=== PATIENT | female | born 1950 | race Caucasian/White ===

== ENCOUNTER → 2017-05-25 13:32 | Outpatient (CLI) | payer MEDICARE, MEDICAID, SELFPAY ==
--- NOTE | 2017-05-25 13:35 | HPBI_ITS ---
MAMMOGRAPHY - UNILATERAL DIAGNOSTIC: RIGHT BREAST REASON FOR EXAM: Female, 67 years old. Right breast lump. PERTINENT HISTORY: Personal history of breast cancer. Prior right lumpectomy TECHNIQUE: Digital unilateral breast juliet (3D mammographic acquisition) in the CC and MLO projections. 2-D mediolateral oblique (MLO) and craniocaudad (CC) views of both breasts were obtained. CAD: Full Field Digital Mammography with Computer Added Detection was performed. COMPARISON: Comparison is made with prior study dated November 12, 2016. FINDINGS: Breast Composition: The breasts are extremely dense, which lowers the sensitivity of mammography. I suspect a 3.2 cm nodular density at the 12:00 region of the right breast. This corresponds to the palpable abnormality.Correlation with ultrasound is recommended. No other significant abnormalities are identified. HPBI/DIAG MAMM W/CAD, UNILAT IMPRESSION: I suspect a 3.2 cm nodular density at the 12:00 position of the breast. Correlation with ultrasound is recommended. ASSESSMENT CATEGORY: BIRADS Category 0: Incomplete. Need additional imaging evaluation. A letter regarding these results will be sent to the patient by the facility within 30 days. Approximately 10% of breast cancers are not detected by mammography. A normal mammogram should not delay biopsy of a clinically suspicious abnormality. Electronically Signed: Tolu Gentile MD at 14:26 EST Tel [phone], Service support ,
--- NOTE | 2017-05-25 13:35 | US_ITS ---
STUDY: ULTRASOUND BREAST - RIGHT REASON FOR EXAM: Female, 67 years old. Palpable lump in the right breast. TECHNIQUE: Axial and longitudinal images of the RIGHT breast were performed with a high resolution ultrasound transducer. COMPARISON: Comparison is made with prior ultrasound dated November 12, 2016 and prior mammogram done May 25, 2017. FINDINGS: RIGHT Breast: The palpable abnormality corresponds to a 3.6 cm x 3.1 cm x 1.0 cm hypoechoic solid density. Focal calcifications are seen within. This may represent a hematoma following biopsy. A repeat biopsy is recommended. US/Breast Limited Unilateral IMPRESSION: The palpable abnormality corresponds with 3.6 cm x 3.1 cm x 1.0 cm hypoechoic solid nodule with punctate calcifications at 11:00 position in the breast at 3 cm from the nipple. A biopsy is recommended for further evaluation. ASSESSMENT CATEGORY: BIRADS Category 2: Benign. A letter regarding these results will be sent to the patient by the facility within 30 days. Electronically Signed: Tolu Gentile MD at 15:26 EST Tel [phone], Service support ,
== END ==
PROVIDERS: Family Provider Family Medicine; PCP Family Medicine; Visit Provider Surgery
DX: C50.911 Malignant neoplasm of unspecified site of right female breast (principal)
CPT/HCPCS: 76641; 76642; 77061; 77065; G0279

== ENCOUNTER → 2017-06-12 10:30 | Outpatient (CLI) | payer MEDICARE, MEDICAID, SELFPAY ==
--- NOTE | 2017-06-12 10:35 | US_ITS ---
STUDY: ULTRASOUND BREAST - RIGHT REASON FOR EXAM: Female, 67 years old. Ultrasound guided right breast biopsy. TECHNIQUE: Axial and longitudinal images of the RIGHT breast were performed with a high resolution ultrasound transducer. COMPARISON: Comparison is made with prior examination dated May 25, 2017. FINDINGS: RIGHT Breast: The biopsy was not performed. No discrete mass lesion is seen. US/Breast Limited Unilateral IMPRESSION: No discrete mass lesion was seen. The scheduled biopsy was not performed. ASSESSMENT CATEGORY: BIRADS Category 2: Benign. A letter regarding these results will be sent to the patient by the facility within 30 days. Electronically Signed: Tolu Gentile MD at 12:25 EST Tel [phone], Service support ,
== END ==
PROVIDERS: Family Provider Family Medicine; PCP Family Medicine; Visit Provider Surgery
DX: C50.911 Malignant neoplasm of unspecified site of right female breast (principal)
CPT/HCPCS: 76642

== ENCOUNTER 2017-10-12 06:18 | Day surgery (SDC) | payer MEDICARE, SELFPAY ==
[2017-10-12] VITALS (8 sets, daily range): BP systolic 137–179; BP diastolic 75–116; PULSE 71–84; RESP 16–18; TEMP 36.6–37; O2SAT 97–100; BMI 15.4
[2017-10-12] MEDS: Bupivacaine Mpf 0.5% 30 ML VIAL (07:38)
--- NOTE | 2017-10-12 08:14 | RAD_ITS ---
STUDY: X-RAY CHEST REASON FOR EXAM: Female, 67 years old. Port placement. TECHNIQUE: Single AP portable view of the chest. COMPARISON: Comparison is made with prior study dated February 26, 2016. FINDINGS: A left-sided portacatheter is in place. The tip is at the junction of the superior vena cava and right atrium. Hyperinflation. The lungs are clear. There is no demonstrated pleural abnormality. Normal size heart. Normal mediastinum and jean claude. Normal visualized pulmonary arteries. Normal visualized aortic arch and descending thoracic aorta. Normal visualized thoracic spine. Normal visualized ribs, clavicles, and shoulders. There is no demonstrated abnormality of the visualized soft tissue structures of the upper abdomen. RAD/CXR for Line Placement IMPRESSION: Hyperinflation. The tip of the left ruddy catheter is at the junction of superior vena cava and right atrium. Electronically Signed: Tolu Gentile MD at 8:56 EDT Tel [phone], Service support ,
--- NOTE | 2017-10-12 08:15 | PCM.OPRPT ---
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 placement of LIJ port. 2. Use of US. 3. Use of fluoroscopy Type of Anesthesia:: MAC/Supplemental/Local Anesthesiologist: Gian Finney Special Medications: clindamycin 600mg IV x1 Estimated Blood Loss (mL): < 5 cc Fluids Replaced: 650 cc Description of Procedure: After informed consent was given, the patient was brought to the operating room and placed in the supine position. Appropriate time out protocol was followed. He was then given IV conscious sedation for anesthesia. The patient's left upper chest and neck were then prepped with a surgical skin preparation and sterile surgical drapes were placed. After proper landmarks were ascertained, the skin at the upper left chest area was then infiltrated with 1:1 mixture of 1% lidocaine with epinephrine and 0.5% maricaine. A needle trocar was then inserted into the left internal jugular vein with ultrasound guidance-multiple vessels were viewed with u/s and the left IJ was chosen-- and there was good aspiration of venous blood. A wire was then threaded into the needle trocar and this was visualized under fluoroscopy to ensure that the wire was in the superior vena cava. Once this was done, then the needle trocar was removed. A small skin boby was made with an 11 blade knife at the wire entrance site. The dilator with the introducer sheath attached was then placed over the wire into the left internal jugular vein via the Seldinger technique and this was visualized under fluoroscopy. The dilator and sheath were in proper position as visualized by fluoroscopy. A subcutaneous pocket was then created caudad to the catheter insertion site. A transverse skin incision was made after the skin and subcutaneous tissues were infiltrated with local anesthetic. Blunt dissection was then used to create a space large enough for placement of the subcutaneous port. The catheter was then tunneled into the subcutaneous pocket. The wire and dilator were then removed. The catheter was then threaded into the introducer sheath and was positioned with its tip at the junction of the superior vena cava and the right atrium as visualized under fluoroscopy. The excess catheter was transected. The catheter was then attached to the subcutaneous port using manufacturers guidelines. The catheter was flushed with a heparin saline mixture prior to placement. Hemostasis was carefully controlled with electrocautery. The port was sutured to the subcutaneous fascia using 3-0 PDS suture at two sites. The port was then placed in the subcutaneous pocket and the sutures were ligated. The incision were reapproximated with interrupted subdermal 3-0 vicryl sutures. The skin was reapproximated with 3-0 nylon suture in a interrupted fashion. Steristrips were used for reinforcement of the skin closure at IJ insertion site and a sterile opsite dressings were applied. The patient tolerated the procedure well. Implants Used: [employer] PowerPort isp M.R.I. 6Fr Lot [id number] Grafts/Implants Used: [employer] PowerPort isp M.R.I. 6Fr Lot [id number] - Complications none
--- NOTE | 2017-10-12 08:25 | PCM.DC.POR ---
Discharge Diet: No Restrictions May shower in (days): 5 - keep port clean and dry for 5 days Lifting Restrictions: no lifting > 15 with left arm for 1 week Call your doctor if your incision/area has: Continuous Slow Oozing, Sudden Increased Bleeding, Increased Pain/ Swelling, Increased Redness, Foul Smelling Discharge, Swelling at the incision site Call your doctor if you observe: Fever of 101 or Higher Change Dressing in (Days):: 3 - ok to remove neck opsite tomorrow Allergies/Adverse Reactions: Allergies Penicillins Allergy (Mild, Verified 10/09/17 15:38) Unknown A CHILD Medications to take at Discharge Levothyroxine [Synthroid] 125 mcg PO DAILY 05/27/14 Clonazepam [Klonopin] 2 mg PO TID 12/11/16 Tizanidine HCl [Zanaflex] 2 mg PO Q8H 12/11/16 Hydrocodone Bitart/Apap 5-325 [[place] 5MG-325MG] 1 tab PO Q4H PRN PRN #15 tab 12/15/16 Ergocalciferol [Vitamin D] 50,000 unit PO QMONTH 10/09/17 Primary Care Physician: Travon Skelton DO [Primary Care Provider] - Test Results: Test results from this visit will be discussed in further detail at your follow-up appointment, if applicable. Please Follow Up With: Onelia Moss MD - after 5pm/weekend call [phone] When: call office tomorrow for appt in 10 days for suture removal Proposed Discharge Date: 10/12/17
--- NOTE | 2017-10-12 08:28 | DCINST_ITS ---
Discharge Diet: No Restrictions May shower in (days): 5 - keep port clean and dry for 5 days Lifting Restrictions: no lifting > 15 with left arm for 1 week Call your doctor if your incision/area has: Continuous Slow Oozing, Sudden Increased Bleeding, Increased Pain/ Swelling, Increased Redness, Foul Smelling Discharge, Swelling at the incision site Call your doctor if you observe: Fever of 101 or Higher Change Dressing in (Days):: 3 - ok to remove neck opsite tomorrow Allergies/Adverse Reactions: Allergies Penicillins Allergy (Mild, Verified 10/09/17 15:38) Unknown A CHILD Medications to take at Discharge Levothyroxine [Synthroid] 125 mcg PO DAILY 05/27/14 Clonazepam [Klonopin] 2 mg PO TID 12/11/16 Tizanidine HCl [Zanaflex] 2 mg PO Q8H 12/11/16 Hydrocodone Bitart/Apap 5-325 [[place] 5MG-325MG] 1 tab PO Q4H PRN PRN #15 tab 02/20 Ergocalciferol [Vitamin D] 50,000 unit PO QMONTH 10/09/17 Primary Care Physician: Travon Skelton DO [Primary Care Provider] - Test Results: Test results from this visit will be discussed in further detail at your follow- up appointment, if applicable. Please Follow Up With: Onelia Moss MD - after 5pm/weekend call [phone] When: call office tomorrow for appt in 10 days for suture removal Proposed Discharge Date: 10/12/17
== END 2017-10-12 09:17 | disposition home or self-care (01) ==
LOC: SDC 06:19 → AC 06:20
PROVIDERS: Family Provider Family Medicine; PCP Family Medicine; Visit Provider Surgery
PROC: (CPT 36561; principal; 2017-10-12 07:15)
DX: Z45.2 Encounter for adjustment and management of vascular access device (principal); C50.911 Malignant neoplasm of unspecified site of right female breast; I10 Essential (primary) hypertension; J44.9 Chronic obstructive pulmonary disease, unspecified; K21.9 Gastro-esophageal reflux disease without esophagitis; Z87.891 Personal history of nicotine dependence
CPT/HCPCS: 36561; 71045; 77001; J7120; C1788

== ENCOUNTER → 2017-11-11 14:04 | Outpatient (CLI) | payer MEDICARE, SELFPAY ==
--- NOTE | 2017-11-11 14:08 | MRI_ITS ---
STUDY: BILATERAL BREAST MR WITHOUT AND WITH CONTRAST REASON FOR EXAM: Female, 67 years old. 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 Patient underwent radiation only clinically, lump has continued to increase in size. TECHNIQUE: Multi-sequence multi-echo imaging of both breasts was performed with a dedicated breast coil. T1-weighted and T2-weighted images were performed before the administration of contrast. T1-weighted images were also performed after the administration of 5 mL of Gadavist contrast intravenously without complications. COMPARISON: Ultrasound examinations of the right breast dated May 25, 2017 and June 12, 2017. The latest examination of June 12, 2017 showed no focal abnormality. FINDINGS: RIGHT BREAST: The breast tissue is markedly dense with minimal background enhancement. There are no abnormal enhancing masses or areas of non-mass enhancement in the right breast. LEFT BREAST: The breast tissue is markedly dense with minimal background enhancement. There are no abnormal enhancing masses or areas of non-mass enhancement in the left breast. There are no enlarged or abnormal lymph nodes. There is no abnormality in the visualized regions of the chest or liver. MRI/Breast w/o and/or W Cont Bilat IMPRESSION: No significant abnormality identified on the breast MRI examination before and after contrast. Negative imaging should not prevent further evaluation of any clinically suspicious finding. CATEGORY: BIRADS Category 2: Benign. A letter regarding these results will be sent to the patient by the facility within 30 days. Electronically Signed: Alfredo Vaughn MD at 12:56 EDT , Service support ,
== END ==
PROVIDERS: Family Provider Family Medicine; PCP Family Medicine; Visit Provider Family Medicine
DX: N64.4 Mastodynia (principal); C50.911 Malignant neoplasm of unspecified site of right female breast
CPT/HCPCS: 77059; A9585; C8908

== ENCOUNTER 2017-12-02 13:10 | Day surgery (SDC) | payer MEDICARE, SELFPAY ==
[2017-12-02] VITALS (7 sets, daily range): BP systolic 135–173; BP diastolic 68–93; PULSE 72–93; RESP 16; TEMP 36.7–37; O2SAT 96–100; BMI 15.0
--- NOTE | 2017-12-02 14:50 | PCM.DC.POR ---
Discharge Diet: No Restrictions May shower in (days): 1 Lifting Restrictions: no lifting < 15 lb w left arm x 1 week Call your doctor if your incision/area has: Continuous Slow Oozing, Sudden Increased Bleeding, Increased Redness, Foul Smelling Discharge, Swelling at the incision site Call your doctor if you observe: Fever of 101 or Higher Remove Dressing in (days):: 2 Allergies/Adverse Reactions: Allergies Penicillins Allergy (Mild, Verified 11/24/17 11:49) Unknown A CHILD Medications to take at Discharge Levothyroxine [Synthroid] 125 mcg PO DAILY 05/27/14 Clonazepam [Klonopin] 2 mg PO TID 12/11/16 Tizanidine HCl [Zanaflex] 2 mg PO Q8H 12/11/16 Hydrocodone Bitart/Apap 5-325 [[place] 5MG-325MG] 1 tab PO Q4H PRN PRN #15 tab 12/15/16 Ergocalciferol [Vitamin D] 50,000 unit PO QMONTH 10/09/17 Primary Care Physician: Travon Skelton DO [Primary Care Provider] - Test Results: Test results from this visit will be discussed in further detail at your follow-up appointment, if applicable. Please Follow Up With: Onelia Moss MD When: call office for f/u in 2 weeks Proposed Discharge Date: 12/02/17
[2017-12-02] MEDS: Bupivacaine Mpf 0.5% 30 ML VIAL (15:35)
--- NOTE | 2017-12-02 15:49 | PCM.OPRPT ---
Report of Operation Date of Procedure: 12/02/17 Pre-Operative Diagnosis: Removal of port LIJ Post-Operative Diagnosis: same Surgery/Procedure Performed:: Removal of left IJ port Type of Anesthesia:: MAC Anesthesiologist: Fredi Chen Special Medications: Clindamyacin 600 mg IV ?1 Specimen's removed: portacath- not sent Estimated Blood Loss (mL): <10 cc Fluids Replaced: 100 cc Description of Procedure: Patient was placed supine on the table timeout was completed verifying correct patient, procedure, site, positioning, special, prior to beginning procedure. MAC anesthesia was induced. The left chest was prepped and draped in usual sterile fashion. Local anesthesia of 1% lidocaine with epi was used. The previous left port site was re-incised with a 15 blade scalpel in Metzenbaum scissors were used to sharply incise the capsule surrounding the port. The catheter was removed while pressure was being held on the left IJ site externally. Next the port was removed from the pocket. The incision was closed with 3-0 Vicryl subdermal sutures with Steri's and OpSite. Patient tolerated procedure well and was taken to the PACU in stable condition. - Complications None
== END 2017-12-02 16:46 | disposition home or self-care (01) ==
LOC: SDC 13:12 → AC 13:19
PROVIDERS: Family Provider Family Medicine; PCP Family Medicine; Visit Provider Surgery
PROC: (CPT 36590; principal; 2017-12-02 14:55)
DX: Z45.2 Encounter for adjustment and management of vascular access device (principal); K21.9 Gastro-esophageal reflux disease without esophagitis; Z79.899 Other long term (current) drug therapy; I10 Essential (primary) hypertension; Z87.891 Personal history of nicotine dependence; C50.911 Malignant neoplasm of unspecified site of right female breast; M79.2 Neuralgia and neuritis, unspecified
CPT/HCPCS: 00400; 36590; J7120

== ENCOUNTER → 2018-01-26 09:28 | Outpatient (CLI) | payer MEDICARE, SELFPAY ==
--- NOTE | 2018-01-26 09:31 | BI_ITS ---
MAMMOGRAPHY - BILATERAL DIAGNOSTIC REASON FOR EXAM: Female, 67 years old. Increasing size of the right breast mass with increased sensitivity. Recent radiation treatment of the right breast. PERTINENT HISTORY: Personal history of breast cancer. Prior right excisional breast biopsy. TECHNIQUE: Digital bilateral breast juliet (3D mammographic acquisition) in the CC and MLO projections. 2-D mediolateral oblique (MLO) and craniocaudad (CC) views of both breasts were obtained. CAD: Full Field Digital Mammography with Computer Added Detection was performed. COMPARISON: Comparison is made with prior examination dated May 25, 2017 and November 12, 2016. FINDINGS: Breast Composition: The breasts are extremely dense, which lowers the sensitivity of mammography. There are no dominant masses or suspicious calcifications. Stable vascular calcification. No other significant abnormalities are identified. BI/DIAG MAMM W/CAD, BILAT IMPRESSION: Stable bilateral diagnostic mammogram. With the patient's history of a palpable abnormality in the right breast, correlation with ultrasound is recommended. ASSESSMENT CATEGORY: BIRADS Category 0: Incomplete. Need additional imaging evaluation. A letter regarding these results will be sent to the patient by the facility within 30 days. Approximately 10% of breast cancers are not detected by mammography. A normal mammogram should not delay biopsy of a clinically suspicious abnormality. Electronically Signed: Tolu Gentile MD at 15:27 EDT Tel [phone], Service support ,
--- NOTE | 2018-01-26 09:32 | US_ITS ---
STUDY: ULTRASOUND BREAST - RIGHT REASON FOR EXAM: Female, 67 years old. Palpable lump in the right breast. TECHNIQUE: Axial and longitudinal images of the RIGHT breast were performed with a high resolution ultrasound transducer. COMPARISON: Comparison is made with prior sonogram dated June 12, 2017 and prior mammogram done earlier today. FINDINGS: RIGHT Breast: Once again, there is a 3 cm x 3.3 cm x 1.0 cm heterogeneous soft tissue density at the 11:00 position breast at 3 cm from the nipple. This is similar to prior examination. Prior MRI scan did not demonstrate any abnormality. This may represent edematous tissue. US/Breast Limited Unilateral IMPRESSION: Stable examination. Clinical correlation is recommended. ASSESSMENT CATEGORY: BIRADS Category 2: Benign. A letter regarding these results will be sent to the patient by the facility within 30 days. Electronically Signed: Tolu Gentile MD at 12:49 EDT Tel [phone], Service support ,
== END ==
PROVIDERS: Family Provider Family Medicine; PCP Family Medicine
DX: C50.911 Malignant neoplasm of unspecified site of right female breast (principal); N64.4 Mastodynia; N63.0 Unspecified lump in unspecified breast
CPT/HCPCS: 76642; 77062; 77066; G0279

== ENCOUNTER → 2018-05-11 11:14 | Outpatient (CLI) | payer MEDICARE, SELFPAY ==
[2018-05-11 13:17] LABS: Thyroid Stim Hormone (TSH) 0.04 uIU/mL (0.358-3.74)
[2018-05-11 16:30] LABS: Free T3 2.1 pg/mL (2.18-3.98); T4 Free Direct 1.29 ng/dL (0.76-1.46)
== END ==
PROVIDERS: Family Provider Family Medicine; PCP Family Medicine; Visit Provider Family Medicine
DX: E03.9 Hypothyroidism, unspecified (principal); Z51.81 Encounter for therapeutic drug level monitoring; R79.89 Other specified abnormal findings of blood chemistry
CPT/HCPCS: 36415; 84439; 84443; 84481

== ENCOUNTER 2018-08-09 07:30 | Day surgery (SDC) | payer MEDICARE, SELFPAY ==
[2018-06-30 14:38] VITALS: BMI 15.3
--- NOTE | 2018-07-12 18:12 | HP.PCM_ITS ---
History and Physical Date of Admission: 07/13/18 HISTORY OF PRESENT ILLNESS 68 year old woman presents with a painful indurated mass right breast superior to the nipple. She was diagnosed with invasive ductal carcinoma right breast on 12/15/16. Estrogen receptors are negative. Progesterone receptors are negative. [id number] is negative for overexpression. She underwent a right sentinel lymph node biopsy on 02/18/17. The lymph nodes were negative. She then underwent radiation therapy. She was evaluated for chemotherapy which she declined. After the radiation therapy, she developed worsening induration and pain in the right breast in the biopsy area. It was felt it was due to a Methylene Blue reaction at the time of the sentinel lymph node biopsy. She underwent a mammogram on 01/26/18 which showed the breasts are extremely dense. There are no dominant masses or suspicious calcifications. An ultrasound of the right breast was also done on 01/26/18 which showed a 3 x 3.3 x 1 cm heterogenous soft tissue density at 11:00 position 3 cm from the nipple. She went to a surgeon in [place] and underwent a right breast biopsy on 04/01/18. Pathology was negative according to the patient. Some of the mass persisted and increased in size. Because of the persistent pain in the area, I was asked to evaluate this patient for surgical options for treatment of her painful radiation mass scar contour deformity right breast. Because I anticipate disproportion of the reconstructed breast with asymmetry after further excision of this painful mass, she also presents to discuss her breast reconstruction options. PAST MEDICAL HISTORY Breast lump in female (Acute) Cervical vertigo (Acute) History of right breast cancer (Acute) Neuralgia (Acute) Osteoarthritis (Acute) SKIN CANCER EXCISION (Acute) Thyroid disease (Acute) Vision problems (Acute) Vitamin D deficiency (Acute) COPD (chronic obstructive pulmonary disease) (Chronic) Hypertension (Chronic) PAST SURGICAL HISTORY lymph node excision lumpectomy, right breast ALLERGIES Penicillins meloxicam MEDICATIONS Levothyroxine [Synthroid] Clonazepam [Klonopin] Tizanidine HCl [Zanaflex] Hydrocodone Bitart/Apap 5-325 [[place] 5MG-325MG] Ergocalciferol [Vitamin D] FAMILY HISTORY Father - CVA (cerebral vascular accident) Mother - Cancer SOCIAL HISTORY Smoking Status: Former smoker alcohol intake: never substance use type: does not use REVIEW OF SYSTEMS General - Denies fever and weight loss. Has fatigue. Eyes - Has cataracts. Denies glaucoma. ENT - Denies nasal congestion and sore throat. Endocrine - Denies excessive thirst and urination. Has thyroid disease. Has heat and cold intolerance. Skin - Denies suspicious lesions and skin cancer. Musculoskeletal - Has joint pain, joint stiffness, and arthritis. Denies weakness of muscles and joints and back pain. Neuro - Denies headaches. Has light headedness. Cardiovascular - Denies chest pain and shortness of breath with exertion. Has fatigue and light headedness. Psych - Denies anxiety and depression. Has claustrophobia. Respiratory - Has cough. Denies shortness of breath. Gastrointestinal - Denies nausea, vomiting, diarrhea, and constipation. Hematologic - Denies abnormal bruising and bleeding. Genitourinary - Denies hematuria and urinary frequency. PHYSICAL EXAMINATION General - Alert and Oriented. Bra size is 34 A. HEENT - PERRL. EOMI. Throat is clear. Neck - Supple and nontender. No cervical adenopathy. Breasts - Palpable mass right breast superior to the nipple in the area of the previous biopsy. Measures 4 cm. Tender to palpation. Adherent to the underlying muscle. No ulceration. No skin retraction. No skin dimpling. Pseudoptosis is present where the nipple is located at the inframammary fold and the breast tissue is below that. There is a lack of superior pole fullness. No axillary adenopathy. Lungs - Clear to auscultation. Heart - Regular rate and rhythm. Abdomen - Soft and nondistended. No abdominal scars noted. Minimal redundant skin and subcutaneous tissue between the umbilicus and the pubic area. Extremities - FROM. No axillary adenopathy. Radial pulses are palpable. Neuro - CN II-XII grossly intact. Psych - Normal mood and affect. ASSESSMENT 1. Right breast cancer. 2. 4 cm painful radiation mass scar contour deformity right breast. 3. Disproportion reconstructed breast. 4. Late effect radiation right breast. 5. Soft tissue radionecrosis right breast. 6. Former smoker. PLAN Ultrasound and Mammogram and MRI reviewed. Recommend excision of this painful radiation mass scar contour deformity right breast. Will send the mass to Pathology for analysis to rule out carcinoma. My concern is that if this mass remains even though it has been biopsied in March and it was benign according to the patient, a breast cancer can always form behind the mass. Every time the patient feels this mass in the future, she will think it is from the radiation and not worry about it and then potentially miss a breast cancer in the future. So this mass needs to be removed to not compromise future breast cancer surveillance. I anticipate a breast defect after the excision and closure depending on how much radiation fibrosis needs to be removed. Will send the mass to Pathology for analysis to rule out carcinoma. With her history of radiation therapy, she would benefit from HBO treatments after the surgery. This will help to soften up any more residual firm radiation damage and to help with oxygenation and help with vascularity. Depending on the degree of the breast deformity, discussed various breast reconstruction options with the patient. These range from placement of expanders and implants to using autogenous tissue such as the TRAM flap or the latissimus dorsi flap to a combination of the two. The patient has expressed interest in cohesive gel implants if there is a breast deformity. For the right breast because of the radiation therapy, we would need to bring in nonradiated tissue for the reconstruction. She does not have much redundant skin in the lower anterior abdominal wall so either choice (TRAM or latissimus dorsi flap) would provide nonradiated tissue for the skin envelope. Can place a small cohesive gel implant underneath. For the opposite breast can place a cohesive gel implant for symmetry. Doubt a saline tissue senior informatica etl developer would be needed but can always be done if needed. A mastopexy may also be needed as well. Patient will think about her reconstruction options after this painful mass is excised. Postop will further discuss HBO treatments which would be beneficial especially if further breast reconstruction is done. Patient is aware that after the excision, there may be some nipple deformity on the right because of the proximity of the mass to the nipple. She voices understanding and if present, she would more likely want to pursue breast reconstruction. Surgery will be done under general anesthesia on an outpatient basis unless extensive excision is necessary in which case a surgical observation overnight stay may be necessary. She will have drains in for several days and be maintained on antibiotics until the drains are removed. Patient was informed of the risks and complications of the procedure including alternatives to surgery. These were discussed with the patient personally. Patient voices understanding and wishes to proceed. Some of the risks and complications were included in a form from the [employer].
[2018-07-13 11:51] VITALS: BP 173/101; PULSE 105; RESP 16; TEMP 37.1; O2SAT 100; BMI 15.6
[2018-08-09 08:31] VITALS: BP 154/75; PULSE 97; RESP 16; TEMP 37.6; O2SAT 99; BMI 14.8
--- NOTE | 2018-08-09 09:10 | MASS_PTH ---
PATIENT: JESS AGUILAR LOC: [facility] – [place] U#:[id number] AGE/SX: 68/F ROOM: RE08/09/[address]: Dr. Federico Ellis MD : 1950 BED: DIS: 08/09/2018 SPEC #: [id number] RECD: 08/09/18 11:31 STATUS: WALI MAGO #: [id number] RODRIGUEZ: 08/09/18 09:[address]: Federcio Ellis DEPT: SURGICAL PATHOLOGY RECD BY: Thierry Phillips ENTERED: 08/09/18 12:45 SP TYPE: Mass OTHR DR: Dr. Travon Skelton DO Tissues: Right breast, NOS Procedures: Surgery Specimen Level IV HEADER OPERATION: Surgical preparation breast with excision PRE-OP DIAGNOSIS: Right breast CA, 4 cm painful radiation mass, scar contour deformity right breast TISSUE SUBMITTED: Radiation mass scar contour deformity right breast MICROSCOPIC DIAGNOSIS Right breast, radiation mass scar contour deformity: Fragments of benign breast tissue with dense fibrosis and chronic inflammation. Focal microcalcifications. Negative for atypia or malignancy in the sections examined. SHAYNE:shannon 08/11/18 MICROSCOPIC DESCRIPTION Slides are reviewed. GROSS DESCRIPTION Received in fixative is one container labeled with the patient's name and designated radiation mass scar contour deformity right breast. The specimen consists of a minute portion of skin with underlying soft tissue measuring 5 x 2 cm and excised to a depth of 7.1 cm. The skin segment measures 2 cm in length x 0.5 cm in diameter and contains a delicate longitudinal scar. The underlying soft tissue is hayden-yellow to hayden-white, soft to moderately firm and rubbery. No discrete lesion is identified. The specimen is inked black, serially sectioned to reveal cut surfaces which are hayden and slightly rubbery. Fall Intern sections are submitted in six cassettes. / CE:shannon 08/09/18 More sections are submitted in one cassette, #7. / SJ:shannon 08/10/18 TC:5 CPT: 76668
--- NOTE | 2018-08-09 10:43 | PCM.OPRPT ---
Report of Operation Date of Procedure: 08/09/18 Pre-Operative Diagnosis: 1. Right breast cancer. 2. 4 cm painful radiation mass scar contour deformity right breast. 3. Disproportion reconstructed breast. 4. Late effect radiation right breast. 5. Soft tissue radionecrosis right breast. 6. Former smoker. Post-Operative Diagnosis: 1. Right breast cancer. 2. 6 cm painful radiation mass scar contour deformity right breast. 3. Disproportion reconstructed breast. 4. Late effect radiation right breast. 5. Soft tissue radionecrosis right breast. 6. Former smoker. Surgery/Procedure Performed:: Surgical preparation right breast with excision painful radiation mass scar contour deformity and partial mastectomy with complex secondary wound closure. Description of Surgical Findings:: 68 year old woman presents with a painful indurated mass right breast superior to the nipple. She was diagnosed with invasive ductal carcinoma right breast on 12/15/16. Estrogen receptors are negative. Progesterone receptors are negative. [id number] is negative for overexpression. She underwent a right sentinel lymph node biopsy on 02/18/17. The lymph nodes were negative. She then underwent radiation therapy. She was evaluated for chemotherapy which she declined. After the radiation therapy, she developed worsening induration and pain in the right breast in the biopsy area. It was felt it was due to a Methylene Blue reaction at the time of the sentinel lymph node biopsy. She underwent a mammogram on 01/26/18 which showed the breasts are extremely dense. There are no dominant masses or suspicious calcifications. An ultrasound of the right breast was also done on 01/26/18 which showed a 3 x 3.3 x 1 cm heterogenous soft tissue density at 11:00 position 3 cm from the nipple. She went to a surgeon in [place] and underwent a right breast biopsy on 04/01/18. Pathology was negative according to the patient. Some of the mass persisted and increased in size. Because of the persistent pain in the area, I was asked to evaluate this patient for surgical options for treatment of her painful radiation mass scar contour deformity right breast. Because I anticipate disproportion of the reconstructed breast with asymmetry after further excision of this painful mass, she also presents to discuss her breast reconstruction options. Patient was informed of the risks and complications of the procedure including alternatives to surgery. These were discussed with the patient personally. Patient voices understanding and wishes to proceed. Some of the risks and complications were included in a form from the [employer]. I used Madonna absorbable hemostat. Reference Number - [id number]. Lot Number - [id number]. Expiration - May 03, 2023. production assembly supervisor: Mayelin Fierro. Type of Anesthesia:: General Specimen's removed: Painful radiation mass scar contour deformity right breast to Pathology. Drains: Sean. Estimated Blood Loss (mL): 25 ml. Description of Procedure: Patient was taken to OR in supine position and was placed under general anesthesia. The right breast was prepped and draped in the usual fashion. SCD's were placed for DVT prophylaxis. Perioperative antibiotics were given intravenously. Using xylocaine with epinephrine, the previous scar right breast was infiltrated. After waiting 5 minutes for the anesthetic to take effect, I proceeded with an elliptical excision of the scar down into the subcutaneous tissue until the firm mass was encountered. It was adherent to the underlying pectoralis major muscle. It was multilobulated. It was more extensive on the inside than could be palpated. When excised, the firm multilobulated mass measured 6 cm. The size of the mass that was removed amounted to a partial mastectomy as about half the breast tissue was removed today. The firm mass was sent to Pathology for analysis to rule out carcinoma. I had discussed with the patient preoperatively that if the remaining breast tissue becomes firm with radiation fibrosis, the next step would be a completion mastectomy including the nipple. Patient voiced understanding. The breast wound was irrigated with saline. Hemostasis was obtained with electrocautery. Due to the large size of the cavity, the wound was sprayed with Madonna absorbable hemostat to minimize seroma formation. A size 15 Sean drain was placed through a separate stab incision laterally and was secured to the skin with 3-0 Nylon suture. The wound was then closed in a multiple layered fashion with 3-0 Monocryl interrupted sutures for the deep dermis and subcutaneous tissue. The skin was approximated with 4-0 V lock unidirectional barbed running subcuticular suture followed by Histoacryl skin tissue adhesive. It was dressed with 4x4 gauze, and ABD pad compression dressing followed by a compression PEREZ wrap. Patient tolerated the procedure well and was sent to PACU in satisfactory condition. Patient will be sent home on antibiotics and pain medication. Patient will followup in a week for a wound check and for discussion of the pathology report. She will keep her head elevated during the initial postop period and be on a lifting restriction. I anticipate the drain removal in 10-14 days. Grafts/Implants Used: None. - Complications None. - Admit VTE Documentation VTE Present on Admission: No VTE Mechan Device Prophylaxis: SCD's VTE Pharm Prophylaxis ordered?: No Code Visit Surgery Charges CPT - 48264 ICD-10 - C50.911, N64.4, N63.10, N65.1, T66.xxxS, L59.8, Z87.891 36546 C50.911, N64.4, N63.10, N65.1, T66.xxxS, L59.8, Z87.891
--- NOTE | 2018-08-09 10:56 | PCM.DC ---
You will use the following diet at home:: No restrictions Discharge Activity: May not drive while taking narcotic pain medications., May Not Shower - until the drain is removed in the office., - - no heavy lifting. keep head elevated. May shower in (days): 14 - when the drain is removed. May resume sexual activity in: No Restrictions Weight Bearing Status: Weight bearing as tolerated Lifting Restrictions: 20 lbs. Keep extremity elevated above heart level: - - elevate head. Call your doctor if your incision/area has: Continuous Slow Oozing, Sudden Increased Bleeding, Increased Pain/ Swelling, Increased Redness, Foul Smelling Discharge, Swelling at the incision site Call your doctor if you observe: Fever of 101 or Higher, Coldness, Increased Pain, Shortness of breath, Chest pain, Calf discomfort, Uncontrolled pain Suture Line Care: - - dry dressings daily followed by martha wrap. Change Dressing in (Days):: 2 - dry dressings daily followed by martha wrap. Cleanse incision/area with: - - may get incision wet in the shower when the drain is removed. Drain: Suction - isidro drain to bulb suction. empty and record output daily. Allergies/Adverse Reactions: Allergies Penicillins Allergy (Mild, Verified 07/05/18 14:22) Unknown A CHILD meloxicam Adverse Reaction (Severe, Verified 07/05/18 14:22) IRREGULAR HEART RATE Medications to take at Discharge Levothyroxine [Synthroid] 100 mcg PO DAILY 05/27/14 Tizanidine HCl [Zanaflex] 2 mg PO Q8H 12/11/16 Ergocalciferol [Vitamin D] 50,000 unit PO QMONTH 10/09/17 Clonazepam 0.05 - 1 mg PO TID PRN 07/05/18 Amlodipine [Norvasc] 5 mg PO DAILY 08/04/18 Clindamycin HCl [Cleocin] 300 mg PO TID #42 cap 08/09/18 Lactobacillus Acidophilus/Fos [Acidophilus Probiotic Tablet] 1 ea PO BID #30 tab 08/09/18 Oxycodone HCl/Acetaminophen [Percocet 5/325] 1 - 2 tab PO 4X/DAY PRN PRN 7 Days #50 tab 08/09/18 The following prescriptions were given: Oxycodone HCl/Acetaminophen [Percocet 5/325] 1 - 2 tab PO 4X/DAY PRN PRN 7 Days #50 tab PRN Reason: Pain Lactobacillus Acidophilus/Fos [Acidophilus Probiotic Tablet] 1 ea PO BID #30 tab Clindamycin HCl [Cleocin] 300 mg PO TID #42 cap Primary Care Physician: Travon Skelton DO [Primary Care Provider] - Test Results: Test results from this visit will be discussed in further detail at your follow-up appointment, if applicable. Please Follow Up With: Federico Ellis MD When: one week. call [phone] for appt. Proposed Discharge Date: 08/09/18
--- NOTE | 2018-08-09 10:59 | DCINST_ITS ---
You will use the following diet at home:: No restrictions Discharge Activity: May not drive while taking narcotic pain medications., May Not Shower - until the drain is removed in the office., - - no heavy lifting. keep head elevated. May shower in (days): 14 - when the drain is removed. May resume sexual activity in: No Restrictions Weight Bearing Status: Weight bearing as tolerated Lifting Restrictions: 20 lbs. Keep extremity elevated above heart level: - - elevate head. Call your doctor if your incision/area has: Continuous Slow Oozing, Sudden Increased Bleeding, Increased Pain/ Swelling, Increased Redness, Foul Smelling Discharge, Swelling at the incision site Call your doctor if you observe: Fever of 101 or Higher, Coldness, Increased Pain, Shortness of breath, Chest pain, Calf discomfort, Uncontrolled pain Suture Line Care: - - dry dressings daily followed by martha wrap. Change Dressing in (Days):: 2 - dry dressings daily followed by martha wrap. Cleanse incision/area with: - - may get incision wet in the shower when the drain is removed. Drain: Suction - isidro drain to bulb suction. empty and record output daily. Allergies/Adverse Reactions: Allergies Penicillins Allergy (Mild, Verified 07/05/18 14:22) Unknown A CHILD meloxicam Adverse Reaction (Severe, Verified 07/05/18 14:22) IRREGULAR HEART RATE Medications to take at Discharge Levothyroxine [Synthroid] 100 mcg PO DAILY 05/27/14 Tizanidine HCl [Zanaflex] 2 mg PO Q8H 12/11/16 Ergocalciferol [Vitamin D] 50,000 unit PO QMONTH 10/09/17 Clonazepam 0.05 - 1 mg PO TID PRN 07/05/18 Amlodipine [Norvasc] 5 mg PO DAILY 08/04/18 Clindamycin HCl [Cleocin] 300 mg PO TID #42 cap 08/09/18 Lactobacillus Acidophilus/Fos [Acidophilus Probiotic Tablet] 1 ea PO BID #30 tab 08/09/18 Oxycodone HCl/Acetaminophen [Percocet 5/325] 1 - 2 tab PO 4X/DAY PRN PRN 7 Days #50 tab 08/09/18 The following prescriptions were given: Oxycodone HCl/Acetaminophen [Percocet 5/325] 1 - 2 tab PO 4X/DAY PRN PRN 7 Days #50 tab PRN Reason: Pain Lactobacillus Acidophilus/Fos [Acidophilus Probiotic Tablet] 1 ea PO BID #30 tab Clindamycin HCl [Cleocin] 300 mg PO TID #42 cap Primary Care Physician: Travon Skelton DO [Primary Care Provider] - Test Results: Test results from this visit will be discussed in further detail at your follow- up appointment, if applicable. Please Follow Up With: Federico Ellis MD When: one week. call [phone] for appt. Proposed Discharge Date: 08/09/18
[2018-08-09 11:06] VITALS: BP 154/75; BP 162/110; PULSE 90; RESP 18; TEMP 36.5; O2SAT 96
[2018-08-09 11:10] VITALS: BP 146/90; BP 154/75; PULSE 76; RESP 18; O2SAT 85
[2018-08-09 11:15] VITALS: BP 154/75; BP 154/79; PULSE 79; RESP 18; O2SAT 95
[2018-08-09 11:30] VITALS: BP 154/75; BP 154/81; PULSE 81; RESP 18; TEMP 36.5; O2SAT 95
[2018-08-09] MEDS: Acetaminophen 325 MG Tablet PO (12:18)
[2018-08-09] MEDS: oxyCODONE 5 MG Tablet PO (12:18)
[2018-08-09 12:33] VITALS: BP 145/71; BP 154/75; PULSE 84; RESP 16; TEMP 37.4; O2SAT 96
== END 2018-08-09 12:37 | disposition home or self-care (01) ==
LOC: SDC 07:30 → AC 07:31
PROVIDERS: Family Provider Family Medicine; PCP Family Medicine; Referring Provider Surgery; Visit Provider Surgery
PROC: (CPT 13160; principal; 2018-08-09 08:55)
DX: N60.31 Fibrosclerosis of right breast (principal); N65.1 Disproportion of reconstructed breast; L90.5 Scar conditions and fibrosis of skin; L59.8 Other specified disorders of the skin and subcutaneous tissue related to radiation; Y84.2 Radiological procedure and radiotherapy as the cause of abnormal reaction of the patient, or of later complication, without mention of misadventure at the time of the procedure; M19.90 Unspecified osteoarthritis, unspecified site; E07.9 Disorder of thyroid, unspecified; J44.9 Chronic obstructive pulmonary disease, unspecified; I10 Essential (primary) hypertension; E55.9 Vitamin D deficiency, unspecified; Z79.899 Other long term (current) drug therapy; Z87.891 Personal history of nicotine dependence; Z85.3 Personal history of malignant neoplasm of breast
CPT/HCPCS: 13160; 15002; 19301; 88305; J7120

== ENCOUNTER → 2018-11-22 09:12 | Outpatient (CLI) | payer MEDICARE, SELFPAY ==
[2018-09-01 10:21] VITALS: BMI 14.8
== END ==
PROVIDERS: Family Provider Family Medicine; PCP Family Medicine; Referring Provider Surgery; Visit Provider Surgery
DX: Z00.00 Encounter for general adult medical examination without abnormal findings (principal)

== ENCOUNTER 2019-01-13 05:54 | Day surgery (SDC) | payer MEDICARE, SELFPAY ==
[2018-12-08 14:49] VITALS: BMI 14.8
[2019-01-13] VITALS (7 sets, daily range): BP systolic 137–156; BP diastolic 72–91; PULSE 73–99; RESP 16–18; TEMP 36.1–37.2; O2SAT 93–100; BMI 16.4
--- NOTE | 2019-01-13 00:11 | PCM.HP.BLA ---
History and Physical Date of Admission: 01/13/19 HISTORY OF PRESENT ILLNESS 68 year old woman initially presented with a painful indurated mass right breast superior to the nipple. She was diagnosed with invasive ductal carcinoma right breast on 12/15/16. Estrogen receptors are negative. Progesterone receptors are negative. [id number] is negative for overexpression. She underwent a right sentinel lymph node biopsy on 02/18/17. The lymph nodes were negative. She then underwent radiation therapy. She was evaluated for chemotherapy which she declined. After the radiation therapy, she developed worsening induration and pain in the right breast in the biopsy area. It was felt it was due to a Methylene Blue reaction at the time of the sentinel lymph node biopsy. She underwent a mammogram on 01/26/18 which showed the breasts are extremely dense. There are no dominant masses or suspicious calcifications. An ultrasound of the right breast was also done on 01/26/18 which showed a 3 x 3.3 x 1 cm heterogenous soft tissue density at 11:00 position 3 cm from the nipple. Because of persistent pain the patient went back to the operating room on 08/09/18 where she underwent surgical preparation right breast with excision painful radiation mass scar contour deformity and partial mastectomy with complex secondary wound closure. Pathology was negative for cancer. Patient started developing cancerphobia and there was initial discussion about proceeding with a completion mastectomy on the right and a prophylactic mastectomy on the left. A saline tissue medical staff manager would be placed on the left and initially on the right, bringing in nonradiated tissue such as a TRAM flap would be done. However she has thought about it recently and just wants to proceed with the completion mastectomy on the right at this time and hold off on reconstruction until next year. She also wants to hold off on prophylactic mastectomy on the left as well. PAST MEDICAL HISTORY Breast lump in female Cervical vertigo right breast cancer Neuralgia Osteoarthritis Thyroid disease Vision problems Vitamin D deficiency COPD (chronic obstructive pulmonary disease) Hypertension PAST SURGICAL HISTORY lymph node excision S/P lumpectomy, left breast SKIN CANCER EXCISION ALLERGIES Penicillins meloxicam MEDICATIONS Levothyroxine [Synthroid] Ergocalciferol [Vitamin D] Clonazepam Amlodipine Lactobacillus Acidophilus/Fos [Acidophilus Probiotic Tablet] hydrocodone tizanidine FAMILY HISTORY Father - CVA (cerebral vascular accident) Mother - Cancer SOCIAL HISTORY Smoking Status: Former smoker alcohol intake: never substance use type: does not use REVIEW OF SYSTEMS General - Denies fever and weight loss. Has fatigue. Eyes - Has cataracts. Denies glaucoma. ENT - Denies nasal congestion and sore throat. Endocrine - Denies excessive thirst and urination. Has thyroid disease. Has heat and cold intolerance. Skin - Denies suspicious lesions and skin cancer. Musculoskeletal - Has joint pain, joint stiffness, and arthritis. Denies weakness of muscles and joints and back pain. Neuro - Denies headaches. Has light headedness. Cardiovascular - Denies chest pain and shortness of breath with exertion. Has fatigue and light headedness. Psych - Denies anxiety and depression. Has claustrophobia. Respiratory - Has cough. Denies shortness of breath. Gastrointestinal - Denies nausea, vomiting, diarrhea, and constipation. Hematologic - Denies abnormal bruising and bleeding. Genitourinary - Denies hematuria and urinary frequency. PHYSICAL EXAMINATION General - Alert and Oriented. Bra size is 34 A. HEENT - PERRL. EOMI. Throat is clear. Neck - Supple and nontender. No cervical adenopathy. Breasts - Has residual radiation induration right breast. Mild tenderness. Right breast is smaller than the left breast after the lumpectomies. Adherent to the underlying muscle. No skin retraction. No skin dimpling. Pseudoptosis is present where the nipple is located at the inframammary fold and the breast tissue is below that. There is a lack of superior pole fullness. No axillary adenopathy. On the left breast, no breast masses palpable. No axillary adenopathy. Lungs - Clear to auscultation. Heart - Regular rate and rhythm. Abdomen - Soft and nondistended. No abdominal scars noted. Minimal redundant skin and subcutaneous tissue between the umbilicus and the pubic area. Extremities - FROM. No axillary adenopathy. Radial pulses are palpable. Neuro - CN II-XII grossly intact. Psych - Normal mood and affect. ASSESSMENT 1. Right breast cancer. 2. Persistent painful radiation induration contour deformity right breast. 3. Disproportion reconstructed breast. 4. Late effect radiation right breast. 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 7. Smoker. PLAN Patient has thought about her breast reconstruction and wants to hold off on her reconstruction at this time. Because of her cancer phobia, she just wants to proceed with the completion mastectomy on the right at this time. Will send the tissue to Pathology for analysis to rule out carcinoma. She states she is still smoking just one or two cigarettes a day. Therefore will not proceed with the mastopexy type T incision which can have wound healing problems. Will proceed with the traditional horizontal mastectomy type incision which includes the nipple. With her history of radiation therapy, she would benefit from HBO treatments after the surgery. This will help to soften up any more residual firm radiation damage and to help with oxygenation and help with vascularity. When she decides to pursue her breast reconstruction, we will bring in nonradiated tissue on the right with a TRAM flap. With her history of smoking, will proceed with a delay procedure first then do the TRAM in 3 weeks. She will also let me know if she decides to pursue prophylactic mastectomy on the left at some point. If so then reconstruction would be with placement of a tissue medical staff manager followed by removal and replacement cohesive gel implant. This may also necessitate a small cohesive gel implant underneath the TRAM flap for symmetry purposes. Patient was informed of the risks and complications of the procedure including alternatives to surgery. These were discussed with the patient personally. Patient voices understanding and wishes to proceed. Some of the risks and complications were included in a form from the [employer]. Encouraged patient to stop smoking as it may have deleterious effects on wound healing. Surgery will be done under general anesthesia with a surgical observation overnight stay at the hospital. She will have drains in for several days and be maintained on antibiotics until the drains are removed. Her anniversary is at the end of December so will proceed with the surgery in early January.
--- NOTE | 2019-01-13 06:07 | EKG12_ITS ---
Test Reason : PRE OP Blood Pressure : / mmHG Vent. Rate : 086 BPM Atrial Rate : 086 BPM P-R Int : 152 ms QRS Dur : 082 ms QT Int : 368 ms P-R-T Axes : 085 053 069 degrees QTc Int : 440 ms Normal sinus rhythm Right atrial enlargement Borderline ECG When compared with ECG of 30-NOV-2013 20:09, No significant change was found Confirmed by NESTOR WATTERS, ABILIO ([id number]), desk editor JAYY LIZ ([id number]) on 01/19/2019 10:32:14 AM Referred By: Federico Ellis Confirmed By:LARS BAEZ MD
--- NOTE | 2019-01-13 06:08 | RAD_ITS ---
STUDY: X-RAY CHEST REASON FOR EXAM: Female, 68 years old. Preoperative chest, history COPD, smoker, breast cancer TECHNIQUE: Portable AP chest COMPARISON: 10/12/2017 and 02/26/2016. Chest radiographs FINDINGS: There is a new 1.8 cm density within the left upper lobe overlying the left anterior third rib. The central venous catheter has been removed. There are bilateral COPD changes. There is scattered bilateral pulmonary scarring. There is no demonstrated pleural abnormality. Normal size heart. Normal mediastinum and jean claude. Normal visualized pulmonary arteries. Normal visualized aortic arch and descending thoracic aorta. Normal visualized thoracic spine. Normal visualized ribs, clavicles, and shoulders. There are surgical clips within the right axilla likely prior meniscectomy. There is no demonstrated abnormality of the visualized soft tissue structures of the upper abdomen. RAD/Chest 1 View (Portable) IMPRESSION: New 1.8 cm left upper lobe density suspicious for a pulmonary nodule, less likely scar or infiltrate. CT chest would be recommended to further evaluate to exclude malignancy. COPD changes Scattered bilateral pulmonary scarring Surgical clips within the right axilla likely from prior mastectomy The results were called to and discussed with the patient's nurse Diane Cifuentes immediately after my review at approximately 7:48 AM 01/13/2019 N.B. : The above information has been verbally conveyed by Nitish Banuelos to Diane Cifuentes [id number], on 01/13/2019 07:57:24 (ET). Electronically Signed: Nitish Banuelos, at 7:59 EDT Tel , Service support ,
[2019-01-13] MEDS: Magnesium Sulfate 4gm/100mL 4 GM/100 ML IV.SOLN. IV (06:35)
[2019-01-13] MEDS: Gabapentin 600 MG Tablet PO (06:36)
[2019-01-13] MEDS: Acetaminophen 500 MG Tablet 1000 MG PO (06:36)
[2019-01-13] MEDS: Scopolamine 1mg/72hr Patch 1 PATCH TRANSDERM. (06:37)
[2019-01-13 06:40] LABS: Bedside Glucose 96 mg/dL (70-110)
[2019-01-13] MEDS: Lactated Ringers 1,000 ML 40 ML IV (06:40)
[2019-01-13 06:45] LABS: Hematocrit 34.5 % (37-47); Hemoglobin 11.1 g/dL (12.0-15.0); Mean Corp Hgb Conc 32.2 g/dL (32-36); Mean Corpuscular Hgb 29.9 pg (27.0-32.0); Platelet Count 284 K/mm3 (150-450); RBC Distribution Width CV 13.4 % (11.6-14.6); Red Blood Count 3.71 M/mm3 (4.2-5.4); White Blood Count 7.6 K/mm3 (4.4-11.0)
[2019-01-13 06:52] LABS: Prothrombin Time (Protime)PT. 13.2 SECONDS (11.7-14.9)
[2019-01-13 06:53] LABS: Partial Thromboplast Time 39.1 Seconds (24.1-36.2)
[2019-01-13 07:11] LABS: AST(SGOT) 14 U/L (15-37); Alanine Aminotransfer ALT/SGPT 18 U/L (13-56); Albumin, Serum 3.2 g/dL (3.2-5.0); Alkaline Phosphatase 91 U/L (45-117); Bilirubin, Direct 0.08 mg/dL (0.00-0.30); Globulin 3.6 g/dL (2.2-4.2); Protein, Total 6.8 g/dL (6.4-8.2); Thyroid Stim Hormone (TSH) 0.07 uIU/mL (0.358-3.74)
--- NOTE | 2019-01-13 07:30 | BREAST_PTH ---
PATIENT: JESS AGUILAR LOC: [facility] U#:[id number] AGE/SX: 68/F ROOM: RE01/13/[address]: Dr. Federico Ellis MD : 1950 BED: DIS: 01/13/2019 SPEC #: [id number] RECD: 01/13/19 11:12 STATUS: WALI RENeena #: [id number] RODRIGUEZ: 01/13/19 07:[address]: Federico Ellis DEPT: SURGICAL PATHOLOGY RECD BY: Thierry Phillips ENTERED: 01/13/19 13:08 SP TYPE: BREAST OTHR DR: Dr. Travon Skelton DO Tissues: Right breast, NOS Procedures: Surgery Specimen Level V HEADER OPERATION: Mastectomy, completion PRE-OP DIAGNOSIS: Right breast cancer; persistent painful radiation induration contour deformity right breast; disproportion reconstructed breast; late effect radiation right breast; soft tissue radionecrosis right breast TISSUE SUBMITTED: Right breast MICROSCOPIC DIAGNOSIS Right breast, mastectomy: Skin, nipple and areola - no pathologic change. Breast parenchyma with fat necrosis, fibrosis, suture granulomas, minimal chronic inflammation. No evidence of malignancy. AM:shannon 01/14/19 COMMENT Reference is made to the patient's right breast lumpectomy ([id number]) in which invasive ductal carcinoma was identified. Case has been reviewed in consultation with Dr. Spaulding who concurs with the above diagnosis. IDC:SJ MICROSCOPIC DESCRIPTION Slides are reviewed. GROSS DESCRIPTION Received in fixative is one container labeled with the patient's name and designated right breast. The specimen consists of a piece of breast tissue with overlying skin of areola. The breast tissue measures 5 x 5 x 2 cm. The skin ellipse measures 7 x 2.6 cm. The nipple measures 1.2 cm in greatest dimension and the nipple areolar complex measures 2.7 cm in greatest dimension. No skin lesion is identified. Also present in the container are detached pieces of fibroadipose tissue and mixed with one small piece of skin measuring in aggregate 5.5 x 5 x 1 cm. Sections do not reveal any mass lesion. L[employer] Recausticizing Operator sections are submitted in six cassettes as follows: 1 - nipple, entirely submitted, 2-5 - largest piece of tissue consisting of breast tissue, 6 - detached pieces of tissue and skin. / SHAYNE:shannon 01/13/19 TC:5 CPT: 51217
--- NOTE | 2019-01-13 09:05 | OP.PCM_ITS ---
Report of Operation Date of Procedure: 01/13/19 Pre-Operative Diagnosis: 1. Right breast cancer. 2. Persistent painful radiation induration contour deformity right breast. 3. Disproportion reconstructed breast. 4. Late effect radiation right breast. 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 7. Smoker. Post-Operative Diagnosis: Same. Surgery/Procedure Performed:: Completion mastectomy right breast. Description of Surgical Findings:: 68 year old woman initially presented with a painful indurated mass right breast superior to the nipple. She was diagnosed with invasive ductal carcinoma right breast on 12/15/16. Estrogen receptors are negative. Progesterone receptors are negative. [id number] is negative for overexpression. She underwent a right sentinel lymph node biopsy on 02/18/17. The lymph nodes were negative. She then underwent radiation therapy. She was evaluated for chemotherapy which she declined. After the radiation therapy, she developed worsening induration and pain in the right breast in the biopsy area. It was felt it was due to a Methylene Blue reaction at the time of the sentinel lymph node biopsy. She underwent a mammogram on 01/26/18 which showed the breasts are extremely dense. There are no dominant masses or suspicious calcifications. An ultrasound of the right breast was also done on 01/26/18 which showed a 3 x 3.3 x 1 cm heterogenous soft tissue density at 11:00 position 3 cm from the nipple. Because of persistent pain the patient went back to the operating room on 08/09/18 where she underwent surgical preparation right breast with excision painful radiation mass scar contour deformity and partial mastectomy with complex secondary wound closure. Pathology was negative for cancer. Patient started developing cancerphobia and there was initial discussion about proceeding with a completion mastectomy on the right and a prophylactic mastectomy on the left. A saline tissue underground production foreperson would be placed on the left and initially on the right, bringing in nonradiated tissue such as a TRAM flap would be done. However she has thought about it recently and just wants to proceed with the completion mastectomy on the right at this time and hold off on reconstruction until next year. She also wants to hold off on prophylactic mastectomy on the left as well. Patient was informed of the risks and complications of the procedure including alternatives to surgery. These were discussed with the patient personally. Patient voices understanding and wishes to proceed. Some of the risks and complications were included in a form from the [employer] [employer]. Encouraged patient to stop smoking as it may have deleterious effects on wound healing. I used Madonna absorbable hemostat. Reference Number - [id number]. Lot Number - [id number]. Expiration - July 02, 2023. mercerizer machine operator: Jordon Frank. Type of Anesthesia:: General Specimen's removed: Right breast tissue to Pathology. Drains: Sean. Estimated Blood Loss (mL): 20 ml. Description of Procedure: Patient was taken to OR in supine position and was placed under general anesthesia. The right breast was prepped and draped in the usual fashion. SCD's were placed for DVT prophylaxis. Perioperative antibiotics were given intravenously. I marked out a horizontal ellipse around the nipple and also including the previous scar just superior to the nipple. Using xylocaine with epinephrine, these markings were infiltrated. After waiting 5 minutes for the anesthetic to take effect, I made a horizontal elliptical incision into the subcutaneous tissue. I placed the breast skin on stretch and proceeded with the completion mastectomy. I dissected the breast tissue off the breast skin flaps at the level of Mabel's fascia. Dissection extended to the pectoralis major muscle and extended superiorly to the clavicle, medially to the sternum, laterally to the anterior axillary line, and inferiorly to the inframammary fold. The remaining breast tissue was then excised off the pectoralis major muscle. Some of the soft tissue was firm indicative of residual radiation scar contour deformity. The right breast tissue was sent to Pathology for analysis to rule out carcinoma. Hemostasis was obtained with electrocautery. I irrigated the breast pocket with Irrisept Chlorhexidine 0.05% Solution and, after waiting a minute, this was followed by saline irrigation. A size 15 Sean drain was placed through a separate stab incision laterally and secured to the skin with 3-0 Nylon suture. I sprayed Madonna absorbable hemostat into the right breast pocket to minimize seroma postoperatively. The mastectomy incision was then closed in a layered fashion with 3-0 Monocryl interrupted sutures for the deep dermis and subcutaneous tissue. The skin was approximated with 4-0 V Lock unidirectional barbed running subcuticular suture and was followed by Histoacryl skin tissue adhesive. The breast skin flaps at the end of the procedure showed no evidence of vascular compromise. There was no evidence of hematoma. Gauze dressing was then applied followed by a compression martha wrap. Patient tolerated the procedure well and was sent to PACU in satisfactory condition. Patient will be sent home on antibiotics and pain medication. Patient will followup in a week for a wound check and for discussion of the pathology report. Will remove the drain in two weeks. With her history of radiation therapy, a CXR was obtained before surgery. It showed a nodule in the left lung that is suspicious for carcinoma because of her history of smoking and history of breast cancer. I discussed these findings with the patient's . I will discuss these findings with the patient at her postop visit. My office contacted her PCP, Dr. Skelton, who will continue the evaluation of this left lung nodule with the patient. Grafts/Implants Used: None. - Complications None. - Admit VTE Documentation VTE Mechan Device Prophylaxis: SCD's VTE Pharm Prophylaxis ordered?: Yes Code Visit Surgery Charges CPT - 19951 ICD-10 - C50.911, F40.298, Z90.11, N65.1, N64.4, N65.0, T66.xxxS, L59.8, F17.200
--- NOTE | 2019-01-13 09:50 | PCM.DC ---
You will use the following diet at home:: No restrictions Discharge Activity: May not drive while taking narcotic pain medications., May Not Shower - until the drain is removed in the office., May Take a Tub Bath - from the umbilicus down., - - keep head elevated. no heavy lifting. continue martha wrap chest wall compression. May shower in (days): 14 - after the drain is removed. May resume sexual activity in: 10-14 days Weight Bearing Status: Weight bearing as tolerated Lifting Restrictions: 20 lbs. Keep extremity elevated above heart level: - - elevate head. Call your doctor if your incision/area has: Continuous Slow Oozing, Sudden Increased Bleeding, Increased Pain/ Swelling, Increased Redness, Foul Smelling Discharge, Swelling at the incision site Call your doctor if you observe: Fever of 101 or Higher, Coldness, Increased Pain, Shortness of breath, Chest pain, Calf discomfort, Uncontrolled pain Suture Line Care: - - dry dressings daily after operative dressing is removed in two days. Change Dressing in (Days):: 2 - dry dressings daily after the operative dressing is removed in a couple of days. Cleanse incision/area with: - - may get incision wet in the shower after the drain is removed in the office. Drain: Suction - isidro drain to bulb suction. empty and record output daily. Allergies/Adverse Reactions: Allergies Penicillins Allergy (Mild, Verified 01/13/19 06:21) Unknown A CHILD meloxicam Adverse Reaction (Severe, Verified 01/13/19 06:21) IRREGULAR HEART RATE Medications to take at Discharge Levothyroxine [Synthroid] 100 mcg PO DAILY 05/27/14 Ergocalciferol [Vitamin D] 50,000 unit PO QMONTH 10/09/17 Amlodipine [Norvasc] 5 mg PO DAILY 08/04/18 tizanidine 2 mg tablet 4 mg PO TID tab 12/08/18 Clindamycin HCl [Cleocin HCl] 300 mg PO TID #42 cap 01/13/19 Clonazepam 2 mg PO TID #30 tab 01/13/19 Hydrocodone/Acetaminophen [Townsend 5-325 Tablet] 1 tab PO Q4H PRN 7 Days #40 tab 01/13/19 Lactobacillus Acidophilus/Fos [Acidophilus Probiotic Tablet] 1 ea PO BID #30 tab 01/13/19 The following prescriptions were given: Lactobacillus Acidophilus/Fos [Acidophilus Probiotic Tablet] 1 ea PO BID #30 tab Prescription Printed Clindamycin HCl [Cleocin HCl] 300 mg PO TID #42 cap Prescription Printed Clonazepam 2 mg PO TID #30 tab Prescription Printed Hydrocodone/Acetaminophen [Townsend 5-325 Tablet] 1 tab PO Q4H PRN 7 Days #40 tab PRN Reason: Pain Score 1-10/10 Prescription Printed Orders to be completed after discharge: 12 Lead EKG [[facility]] Time Frame: 01/10/19, Facility: [facility], Location: Cardiovascular Services Chest PA and Lateral [RAD] Time Frame: 01/10/19, Facility: [facility], Location: Radiology, [facility] CBC-Complete Blood Cnt No Diff Time Frame: 01/10/19, Facility: [facility], Location: Laboratory Liver Profile Time Frame: 01/10/19, Facility: [facility], Location: Laboratory Partial Thromboplast Time Time Frame: 01/10/19, Facility: [facility], Location: Laboratory Prothrombin Time w/INR Time Frame: 01/10/19, Facility: [facility], Location: Laboratory Thyroid Stim Hormone (TSH) Time Frame: 01/10/19, Facility: [facility], Location: Laboratory Primary Care Physician: Travon Skelton DO [Primary Care Provider] - Test Results: Test results from this visit will be discussed in further detail at your follow-up appointment, if applicable. Please Follow Up With: Federico Ellis MD When: one week. call [phone] for appt. Proposed Discharge Date: 01/13/19
== END 2019-01-13 11:09 | disposition home or self-care (01) ==
LOC: SDC 05:56 → AC 05:58
PROVIDERS: Anesthesiology; Family Provider Family Medicine; PCP Family Medicine; Referring Provider Surgery; Visit Provider Surgery
PROC: (CPT 19303; principal; 2019-01-13 07:15)
DX: C50.911 Malignant neoplasm of unspecified site of right female breast (principal); N65.0 Deformity of reconstructed breast; N64.51 Induration of breast; N65.1 Disproportion of reconstructed breast; L59.8 Other specified disorders of the skin and subcutaneous tissue related to radiation; N64.1 Fat necrosis of breast; F40.298 Other specified phobia; Z90.11 Acquired absence of right breast and nipple; N60.31 Fibrosclerosis of right breast; M19.90 Unspecified osteoarthritis, unspecified site; E06.9 Thyroiditis, unspecified; J44.9 Chronic obstructive pulmonary disease, unspecified; I10 Essential (primary) hypertension; Z86.2 Personal history of diseases of the blood and blood-forming organs and certain disorders involving the immune mechanism; Z78.0 Asymptomatic menopausal state; Z85.828 Personal history of other malignant neoplasm of skin; Z79.899 Other long term (current) drug therapy; F17.200 Nicotine dependence, unspecified, uncomplicated
CPT/HCPCS: 19303; 36415; 71045; 80076; 82962; 84443; 85027; 85610; 85730; 88307; 93005; J7120; J2405

== ENCOUNTER → 2019-02-22 07:45 | Outpatient (CLI) | payer MEDICARE, SELFPAY ==
[2019-01-19 10:47] VITALS: BMI 16.4
[2019-02-02 10:53] VITALS: BMI 16.4
--- NOTE | 2019-02-22 07:50 | CT_ITS ---
STUDY: CT CHEST WITH CONTRAST REASON FOR EXAM: Female, 68 years old. History of lung nodule. RADIATION DOSAGE (If Supplied By Facility): CTDIvol = ( 7.23 ) mGy, DLP = ( 173.10 ) mGycm TECHNIQUE: Transaxial imaging was performed following intravenous administration of IV Isovue 370 100. Multiplanar coronal and sagittal images were reformatted. Individualized dose optimization techniques were used for this CT. COMPARISON: Comparison is made with prior chest radiograph dated January 13, 2019. FINDINGS: There is a 1.5 cm x 1.8 cm x 2.4 cm predominantly cystic nodule with irregular wall worse in the anterior superior aspect. This may represent either an infected bulla or possible cystic neoplasm. Correlation with the PET scan is recommended. Hyperinflation and mild degree of emphysematous changes. Findings suggestive of a mild degree of the scarring at the lung bases. Normal heart and pericardium. Normal mediastinum. Normal hilar regions. Normal enhanced pulmonary arteries. Normal aorta arch and descending thoracic aorta. There is demineralization of the thoracic spine. There is no demonstrated abnormality of the visualized upper abdomen. CT/Chest WITH Contrast IMPRESSION: 1.5 cm x 1.87 x 2.4 cm predominantly cystic nodule with irregular mantilla in the left upper lobe as described. Correlation with PET scan is recommended. Electronically Signed: Tolu Gentile, at 16:00 EST , Service support ,
[2019-02-22 08:10] LABS: CREATININE FINGERSTICK 1.3 mg/dL (0.55-1.02)
== END ==
PROVIDERS: Family Provider Family Medicine; PCP Family Medicine; Referring Provider Family Medicine; Visit Provider Family Medicine
DX: R91.1 Solitary pulmonary nodule (principal)
CPT/HCPCS: 71260

== ENCOUNTER → 2019-05-23 07:25 | Outpatient (CLI) | payer MEDICARE, MEDICAID, SELFPAY ==
[2019-02-02 10:53] VITALS: BMI 16.4
--- NOTE | 2019-05-23 08:30 | PET_ITS ---
EXAMINATION: FDG PET-CT INDICATIONS: A 69-year-old female with reported history of pulmonary nodularity. COMPARISON EXAMINATION: CT of the chest report dated 02/21/2019 INDEX LESION SIZE SUV INTERPRETATION Left upper-mid anterior lung-left upper lobe 19.8-mm (frame 202) 7.2 Fulfills quantitative criteria for viable neoplasm, histopathologic analysis recommended Carinal level mediastinum, paratracheal 7.3-mm (frame 204) 4.2 Fulfills quantitative criteria for viable neoplasm NON-INDEX LESION SIZE SUV INTERPRETATION Left lower lung, linear 2.2 Quantitative criteria for viable neoplasm are not fulfilled TECHNIQUE: Following the intravenous administration of 18.5 mCi of F-18 deoxyglucose via the left antecubital fossa, multiplanar image acquisitions of the neck, chest, abdomen and pelvis to level of mid thigh, obtained at one hour post radiopharmaceutical administration contemporaneously interpreted with the current CT of the neck, chest, abdomen and pelvis, to level of mid thigh, dated 05/23/[address] of the chest report dated 02/21/2019 reveals: BLOOD GLUCOSE LEVEL:?? 93 mg/dl?HEIGHT:?63 inches?WEIGHT: 84 lbs. FINDINGS: 1. Focal increased glucose concentration is observed in the left upper-mid anterior lung-left upper lobe generating a calculated maximal standard uptake value of 7.2. The maximal axial diameter of the corresponding cavitated parenchymal density on review of CT of the chest dated 05/23/2019 is 19.8-mm (transverse). 2. Facilitated tracer concentration is observed in the carinal level mediastinum to the left of the midline, paratracheal in location, generating a calculated maximal standard uptake value of 4.2. The maximal axial diameter of the corresponding soft tissue density on review of CT of the chest dated 05/23/2019 is 7.3-mm (transverse). 3. Normal physiologic distribution of the radiopharmaceutical is apparent in the hepatic (1.8) and splenic parenchyma, both renal units, bladder and visualized intestinal tract. The visualized portion of the cerebral cortex demonstrate symmetric and preserved glucose metabolism. Diffuse radiopharmaceutical concentration is noted in all four quadrants of the abdomen and pelvis. A linear increase in glucose concentration is observed in the left lower lateral lung generating a calculated maximal standard uptake value of 2.2. Quantitative criteria for viable neoplasm are not fulfilled. Pertinent CT findings are as follows: CHEST: Emphysematous change is noted in the bilateral upper lung zones. Additional subcentimeter parenchymal changes defined in the bilateral hemithorax reveal no evidence of facilitated FDG uptake. There is atherosclerotic calcification defined in the thoracic aorta without evidence of dilatation-aneurysm formation. Coronary arterial calcification is observed. ABDOMEN AND PELVIS: There is atherosclerotic calcification defined in the abdominal aorta without evidence of dilatation-aneurysm formation. Pelvic arterial calcification is observed. Bilateral inguinal subcentimeter soft tissue densities are ametabolic. The urinary bladder appears distended. SKELETAL: Degenerative changes are noted in the cervical, thoracic and lumbar spine. There is diffuse demineralization identified throughout the axial skeletal structures. PET/PET/CT Tumor Base -Thigh Init IMPRESSION: 1. Increased glucose concentration observed in the left upper anterior lung zone-left upper lobe fulfills quantitative criteria for viable neoplasm. Histopathologic analysis is recommended. (Castro et al, Annals of Internal Medicine, 138:724, 2003). 2. The carinal level mediastinal increase in glucose concentration noted to the left of the midline, paratracheal in location, fulfills quantitative criteria for metastatic involvement. (VanSteenkiste et al, Journal of Clinical Oncology 16:2142, 1998). 3. Linear enhanced FDG uptake noted in the left lower lateral lung is consistent with a low likelihood of viable neoplastic transformation. Electronic Signature Guille Bustos D.O. Electronically Signed: Guille Bustos DO at 0:06 EST Tel , Service support ,
== END ==
PROVIDERS: Family Provider Family Medicine; PCP Family Medicine; Referring Provider Family Medicine; Visit Provider Family Medicine
DX: R91.1 Solitary pulmonary nodule (principal)
CPT/HCPCS: 78815; A9552

== ENCOUNTER → 2019-05-25 10:20 | Outpatient (CLI) | payer MEDICARE, MEDICAID, SELFPAY ==
[2019-02-02 10:53] VITALS: BMI 16.4
[2019-05-25 12:31] LABS: Absolute Lymphocyte Count 1.76 X10^3/uL (0.83-4.51); Basophil# 0.04 X10^3/uL; Basophil% 0.4 % (0-1); Eosinophil# 0.19 X10^3/uL; Eosinophils% 1.7 % (0-5); Hematocrit 41.8 % (37-47); Hemoglobin 13.2 g/dL (12.0-15.0); Lymphocyte # 1.76 X10^3/ul (4.0); Lymphocyte % 15.7 % (19-41); Mean Corp Hgb Conc 31.6 g/dL (32-36); Mean Corpuscular Hgb 28.4 pg (27.0-32.0); Mean Corpuscular Volume 90.1 fL (81-99); Mean Platelet Vol. 9.8 fl (6.2-12.0); Monocyte# 1.03 X10^3/uL; Monocyte% 9.2 % (0-10); NRBC Flagged by Analyzer 0 % (0-5); Neutrophil # 7.96 X10^3/uL (2.7-7.7); Neutrophil % 71.2 % (47-70); Platelet Count 478 K/mm3 (150-450); RBC Distribution Width CV 14.2 % (11.6-14.6); RBC Distribution Width SD 46.1 fl (35.1-43.9); Red Blood Count 4.64 M/mm3 (4.2-5.4); White Blood Count 11.2 K/mm3 (4.4-11.0)
[2019-05-25 13:05] LABS: AST(SGOT) 17 U/L (15-37); Alanine Aminotransfer ALT/SGPT 18 U/L (13-56); Albumin, Serum 3.9 g/dL (3.2-5.0); Alkaline Phosphatase 83 U/L (45-117); Anion Gap 6 (5-15); BUN 17 mg/dL (7-18); Calcium,Total 9.9 mg/dL (8.5-10.1); Chloride 99 mmol/L (98-107); Creatinine, Serum 1.13 mg/dL (0.55-1.02); EST Glomerular Filtration Rate 51 mL/min (>60); Est Glom Filt Rate - Afr Amer 62 mL/min (>60); Glucose 102 mg/dL (74-106); Potassium 3.8 mmol/L (3.5-5.1); Protein, Total 7.9 g/dL (6.4-8.2); Sodium Level 136 mmol/L (136-145)
[2019-05-26 15:41] LABS: Carcinoembryonic Antigen 4.7 ng/mL (0.0-4.7)
== END ==
PROVIDERS: PCP Family Medicine; Visit Provider Family Medicine
DX: C34.92 Malignant neoplasm of unspecified part of left bronchus or lung (principal); Z51.81 Encounter for therapeutic drug level monitoring
CPT/HCPCS: 36415; 80053; 82378; 85025

== ENCOUNTER → 2019-06-14 09:25 | Outpatient (CLI) | payer MEDICARE, MEDICAID, SELFPAY ==
[2019-06-14 06:04] VITALS: BMI 15.7
[2019-06-14 10:22] LABS: Prothrombin Time (Protime)PT. 13.2 SECONDS (11.7-14.9)
[2019-06-14 10:23] LABS: Partial Thromboplast Time 32.9 Seconds (24.1-36.2)
== END ==
PROVIDERS: PCP Family Medicine; Referring Provider Internal Medicine Critical Care Medicine; Visit Provider Internal Medicine Critical Care Medicine
DX: J98.4 Other disorders of lung (principal); R06.00 Dyspnea, unspecified; Z98.890 Other specified postprocedural states
CPT/HCPCS: 36415; 85610; 85730

== ENCOUNTER → 2019-09-01 08:54 | Outpatient (CLI) | payer MEDICARE, MEDICAID, SELFPAY ==
[2019-06-14 06:04] VITALS: BMI 15.7
[2019-09-01 13:09] LABS: ALB/GLOB Ratio 0.8 RATIO (0.9-2.4); AST(SGOT) 50 U/L (15-37); Alanine Aminotransfer ALT/SGPT 45 U/L (13-56); Albumin, Serum 3.5 g/dL (3.2-5.0); Alkaline Phosphatase 93 U/L (45-117); Anion Gap 6 (5-15); BUN 19 mg/dL (7-18); BUN/Creat Ratio 16.7 RATIO (10-20); Calcium,Total 9.7 mg/dL (8.5-10.1); Chloride 98 mmol/L (98-107); Creatinine, Serum 1.14 mg/dL (0.55-1.02); EST Glomerular Filtration Rate 51 mL/min (>60); Est Glom Filt Rate - Afr Amer 61 mL/min (>60); Globulin 4.2 g/dL (2.2-4.2); Glucose 98 mg/dL (74-106); Potassium 4.6 mmol/L (3.5-5.1); Protein, Total 7.7 g/dL (6.4-8.2); Sodium Level 133 mmol/L (136-145)
== END ==
PROVIDERS: PCP Family Medicine; Visit Provider Family Medicine
DX: M62.838 Other muscle spasm (principal); Z51.81 Encounter for therapeutic drug level monitoring
CPT/HCPCS: 36415; 80053

== ENCOUNTER → 2019-09-07 07:54 | Outpatient (CLI) | payer MEDICARE, MEDICAID, SELFPAY ==
[2019-06-14 06:04] VITALS: BMI 15.7
[2019-09-01 07:50] VITALS: BMI 15.7
[2019-09-07] VITALS (11 sets, daily range): BP systolic 160–212; BP diastolic 67–132; PULSE 100–118; RESP 12–16; TEMP 36.6; O2SAT 89–100; BMI 14.8
--- NOTE | 2019-09-07 | IMM_PTH ---
PATIENT: JESS AGUILAR LOC: CT U#:[id number] AGE/SX: 74/F ROOM: RE09/07/[address]: Dr. Lukas Huerta MD : 1950 BED: DIS: SPEC #: [id number] RECD: 09/08/19 12:03 STATUS: WALI RENeena #: [id number] RODRIGUEZ: 09/07/19 00:[address]: Lukas Huerta DEPT: IMMUNOHISTOCHEMISTRY RECD BY: Sosa Crespo ENTERED: 09/08/19 12:07 SP TYPE: IMMUNO OTHR DR: Dr. Travon Skelton DO Tissues: Lung, NOS Procedures: RCC (add) NAPSIN A (add) CK20 (add) CK5-6 (add) CK7 (add) CK8 (add) HEP PAR (add) AK (add) TTF1 (add) P40 (add) ER (initial) PHYSICIAN & INSTITUTION [place] [id number] SPECIMEN INFORMATION: Tissue Source: Left lung mass Clinical Info: Left lung mass Specimen Number: [id number] CPT code: 27827, 39669 x10 METHODOLOGY: Deparaffinized sections of prefer/formalin-fixed tissue or PAP/DQ stained slides are incubated with monoclonal/polyclonal antibodies/oligonucleotide probes. Localization is made via biotin free immunoperoxidase method. Appropriate controls are performed and reacted as expected. Results on target cell population are indicated in the following table: RESULTS: ANTIBODY / CLONE RESULT ER (6F11) negative AK (1E2) negative CK7 (OV-TL12/30) positive CK8 (34srafU54) positive, focal and weak CK20 (KS20.8) negative TTF-1 (8G7G3/1) negative Napsin A (Rabbit Polyclonal) negative HepPar (OCh1E5) negative RCC (PN-15) negative CK5-6 (D5 & 1684) positive P40 (BC28) positive These tests were developed and their performance characteristics determined by [facility]. They may not have been cleared or approved by the U.S. Food and Drug Administration. The FDA has determined that such clearance or approval is not necessary. The above immunohistochemical/dualISH markers are ordered and reviewed by the Pathologist. INTERPRETATION: Left lung mass, CT-guided biopsy: Non-small cell carcinoma, favor squamous cell carcinoma. SJ:shannon 09/09/19
--- NOTE | 2019-09-07 | LUNB_PTH ---
PATIENT: JESS AGUILAR LOC: CT U#:[id number] AGE/SX: 74/F ROOM: RE09/07/[address]: Dr. Lukas Huerta MD : 1950 BED: DIS: SPEC #: [id number] RECD: 09/07/19 10:18 STATUS: WALI MAGO #: [id number] RODRIGUEZ: 09/07/19 00:[address]: Lukas Huerta DEPT: SURGICAL PATHOLOGY RECD BY: Trupti Peng ENTERED: 09/07/19 10:19 SP TYPE: LUNG BX OTHR DR: Dr. Travon Skelton DO Tissues: Lung, NOS Procedures: Special Stain Group II Surgery Specimen Level IV Imprint (control) HEADER OPERATION: CT-guided lung biopsy PRE-OP DIAGNOSIS: Left lung mass TISSUE SUBMITTED: Left lung mass MICROSCOPIC DIAGNOSIS Left lung mass, CT-guided core biopsy: Non-small cell carcinoma, favor squamous cell carcinoma. See comment. SJ:shannon 09/08/19 COMMENT The specimen is evaluated at the time of biopsy by Dr. Spaulding. Immediate Evaluation = Rare markedly atypical cells noted. Immunohistochemistry ([id number]) supports the above diagnosis. Molecular studies on the tumor can be performed, if clinically indicated. Please notify the laboratory, if they are needed. This case has been reviewed in consultation with Dr. Pino who concurs with the above diagnosis. MICROSCOPIC DESCRIPTION Slides are reviewed. GROSS DESCRIPTION Received in fixative is one container labeled with the patient's name and designated left lung mass. The specimen consists of multiple irregular fragments of light hayden soft tissue that in aggregate measure 1 x 0.1 x <0.1 cm. The specimen is totally submitted in one cassette. Two touch imprints are prepared at the time of biopsy. / AM:shannon 09/07/19 TC:0 CPT: 81107, 25769 ADDENDUM ADDENDUM ADDENDUM ADDENDUM ADDENDUM ADDENDUM ADDENDUM 10/27/2019 09:32 ADDENDUM 10/27/2019 09:32 ADDENDUM 10/27/2019 09:32 ADDENDUM 10/27/2019 09:32 ADDENDUM 10/27/2019 09:32 PD-L1 (KEYTRUDA) IMMUNOHISTOCHEMISTRY ANALYSIS FROM [facility] INTERPRETATION: Expression Tumor proportion score: 40% Please see complete report in e-chart or EMR for complete details
--- NOTE | 2019-09-07 07:56 | CT_ITS ---
STUDY: CT BRAIN WITH AND WITHOUT CONTRAST REASON FOR EXAM: Female, 69 years old. POSSIBLE METS RADIATION DOSAGE (If Supplied By Facility): CTDIvol = ( 60.81 ) mGy, DLP = ( 2172.41 ) mGycm TECHNIQUE: Transaxial CT imaging of the brain was performed pre and post contrast administration. The examination was performed with intravenous administration of 50 CC ISOVUE 370. Individualized dose optimization techniques were used for this CT. COMPARISON: None. FINDINGS: Normal soft tissue structures. Normal calvarium. There is mild cerebral atrophy with widening of the extra-axial spaces and ventricular dilatation. There are areas of decreased attenuation within the white matter tracts of the supratentorial brain, consistent with microvascular disease changes. Normal basal ganglia and thalami. Normal brainstem. Normal cerebellum. There is no intracranial hemorrhage. There are no findings of an acute ischemic infarction. Normal visualized paranasal sinuses. CT/Brain/Head W/WO Contrast IMPRESSION: Chronic involutional changes of the brain. Electronically Signed: Tolu Gentile, at 14:42 EDT , Service support ,
--- NOTE | 2019-09-07 07:56 | CT_ITS ---
PROCEDURE: CT GUIDED CORE NEEDLE BIOPSY OF A left upper lobe LUNG LESION INDICATION: Female, 69 years old. LT UPPER LOBE MASS LUNG BX PHYSICIAN: Dr. Seferino WATTERS CONSENT: Written informed consent was obtained having explained the risks, benefits and alternatives in detail with the patient who accepted the risks and agreed to proceed. Laboratory review and clinical assessment was performed. CONSCIOUS SEDATION PROTOCOL: The Drugs used were: 2 mg Versed, IV., and 50 mcg Fentanyl, IV. The sedation time was: 30 minutes. Conscious sedation was started at 9:35 AM and terminated and 10:05 AM. The conscious sedation protocol was independently monitored. RADIATION DOSAGE (If Supplied By Facility): CTDIvol = ( 16.2 ) mGy, DLP = ( 448.19 ) mGycm Individualized dose optimization techniques were used for this CT. TECHNIQUE: The patient was placed in the supine position. A noncontrast CT was performed to localize the lesion in the anterior aspect of the left upper lobe . The skin surface was prepped and draped in a sterile fashion. 1% lidocaine was used for local anesthesia. Using CT guidance, a 20-gauge coaxial biopsy device was advanced to the periphery of the lesion. A total of 4 core specimens were obtained. The specimens were placed in a formalin solution. A post procedure CT demonstrated no adverse sequelae or pneumothorax. The patient tolerated the procedure well without adverse event. A negative biopsy does not exclude malignancy. Further imaging or clinical followup based on patient condition and degree of clinical suspicion for malignancy. Suggest rebiopsy, if biopsy results do not match with clinical scenario. CT/Biopsy/Inj or Needle Placement IMPRESSION: 1. CT directed core needle biopsy of the left upper lobe lung lesion using CT image guidance with image documentation as described. Pathology results are pending. 2. Conscious Sedation protocol utilized with independent monitoring. Electronically Signed: Tolu Gentile, at 11:06 EDT , Service support ,
[2019-09-07 08:12] LABS: Platelet Count 464 K/mm3 (150-450)
[2019-09-07 08:34] LABS: Prothrombin Time (Protime)PT. 12.9 SECONDS (11.7-14.9)
[2019-09-07 08:35] LABS: Partial Thromboplast Time 38.7 Seconds (24.1-36.2)
[2019-09-07] MEDS: Midazolam 2 MG/2 ML Syringe IV ×2 (09:37→09:55)
[2019-09-07] MEDS: fentaNYL 100 MCG/2 ML Ampul IV ×2 (09:39→10:18)
--- NOTE | 2019-09-07 10:15 | RAD_ITS ---
STUDY: X-RAY CHEST REASON FOR EXAM: Female, 69 years old. POST BX LEFT SIDE TECHNIQUE: AP inspiration and expiration views. COMPARISON: Comparison is made with prior examination dated January 13, 2019. FINDINGS: The patient is status post left upper lobe lung biopsy. No evidence of pneumothorax. RAD/Chest Insp/Exp 2 View IMPRESSION: No evidence of pneumothorax in the immediate post left upper lobe lung biopsy. Electronically Signed: Tolu Gentile, at 8:00 EDT , Service support ,
--- NOTE | 2019-09-07 12:15 | RAD_ITS ---
STUDY: X-RAY CHEST REASON FOR EXAM: Female, 69 years old. 2 HR POST LT LUNG BX. INSPR/EXPR VWS TECHNIQUE: AP inspiration and expiration views. COMPARISON: Comparison is made with prior examination done earlier today. FINDINGS: This is a 2 hour post left lung biopsy radiograph. There is no evidence of pneumothorax. Persistent nodular mass in the left upper lobe. RAD/Chest Insp/Exp 2 View IMPRESSION: No evidence of pneumothorax on the 2 hour delayed radiographs. Electronically Signed: Tolu Gentile, at 13:23 EDT , Service support ,
== END ==
PROVIDERS: Nurse Practitioner Acute Care; PCP Family Medicine; Referring Provider Internal Medicine Critical Care Medicine; Visit Provider Internal Medicine Critical Care Medicine
DX: C34.92 Malignant neoplasm of unspecified part of left bronchus or lung (principal); R06.02 Shortness of breath
CPT/HCPCS: 32405; 36415; 70470; 71046; 77012; 85049; 85610; 85730; 88305; 88313; 88341; 88342; 99156; 99157; J7040; Q9967; A4216

== ENCOUNTER → 2019-09-27 15:58 | Outpatient (CLI) | payer MEDICARE, SELFPAY ==
[2019-09-07 08:28] VITALS: BMI 14.8
--- NOTE | 2019-09-27 15:00 | PET_ITS ---
EXAMINATION: FDG PET-CT INDICATIONS: A 69-year-old female with history of carcinoma of the lung presenting for initial staging examination. COMPARISON EXAMINATION: CT of the chest biopsy report dated 09/07/2019 INDEX LESION SIZE SUV INTERPRETATION Left mid anterior lung-left upper lobe 31.2-mm (frame 175) 13.8 Fulfills quantitative criteria for viable neoplasm Carinal level mediastinum 21.5-mm (frame 179) 7.6 Fulfills quantitative criteria for viable neoplasm Right lower anteromedial lung-right middle lobe 16.1-mm (frame 155) 5.1 Fulfills quantitative criteria or viable neoplasm Right posterolateral sixth rib, right sacral ala 11.7 (max) Fulfills quantitative criteria for viable neoplasm TECHNIQUE: Following the intravenous administration of 12.45 mCi of F-18 deoxyglucose via the left antecubital fossa, multiplanar image acquisitions of the neck, chest, abdomen and pelvis to level of mid thigh, obtained at one hour post radiopharmaceutical administration contemporaneously interpreted with the current CT of the neck, chest, abdomen and pelvis, to level of mid thigh, dated 09/27/[address] of the chest biopsy report dated 09/07/2019 reveals: BLOOD GLUCOSE LEVEL:?? 101 mg/dl?HEIGHT:?63 inches?WEIGHT: 82 lbs. FINDINGS: 1. There is an increase in glucose metabolism defined in the left mid anterior lung field-left upper lobe generating a calculated maximal standard uptake value of 13.8. The maximal axial diameter of the corresponding cavitated density on review of CT of the chest dated 09/27/2019 is 31.2-mm (AP). 2. Enhanced tracer concentration is observed in the carinal level mediastinum to the left of the midline generating a calculated maximal standard uptake value of 7.6. The maximal axial diameter of the corresponding metabolic, morphologic abnormality on review of CT of the chest dated 09/27/2019 is 21.5-mm (transverse). 3. Facilitated radiopharmaceutical concentration is observed in the right lower medial lung which appears to involve the medial segment of the right middle lobe adjacent to the fissure generating a calculated maximal standard uptake value of 5.1. The maximal axial diameter of the corresponding parenchymal density on review of CT of the chest dated 09/27/2019 is 16.1-mm (AP). 4. Facilitated tracer concentration is observed in the right mid posterolateral chest wall contiguous to the sixth rib and right sacral ala generating a calculated maximal standard uptake value of 11.7. 5. Normal physiologic distribution of the radiopharmaceutical is apparent in the hepatic (1.4) and splenic parenchyma, both renal units, bladder and visualized intestinal tract. The visualized portion of the cerebral cortex demonstrate symmetric and preserved glucose metabolism. Diffuse radiopharmaceutical concentration is noted in all four quadrants of the abdomen and pelvis. Prominent radiopharmaceutical concentration is observed in the anterior neck, laryngeal structures contiguous to the true-false vocal cord extending to the arytenoid cartilage and cricopharyngeus musculature most consistent with physiologic tracer distribution. Pertinent CT findings are as follows: CHEST: Emphysematous change is noted in the bilateral upper lung zones. The cavitated parenchymal densities noted in the left anterior lung and right lower anteromedial lung demonstrate facilitated FDG uptake as previously described. ABDOMEN AND PELVIS: There is atherosclerotic calcification defined in the abdominal aorta without evidence of dilatation-aneurysm formation. Pelvic arterial calcification is observed. Exophytic cyst formation is defined in the left kidney. Bilateral subcentimeter inguinal soft tissue densities are non-glucose avid. The urinary bladder appears distended. There are calcifications noted in the bilateral adnexal region without evidence of facilitated FDG uptake. SKELETAL: Degenerative changes are noted in the cervical, thoracic and lumbar spine. PET/PET/CT Tumor Base -Thigh Init IMPRESSION: 1. ABNORMAL EXAMINATION INDICATIVE OF MALIGNANT PRIMARY-METASTATIC VIABLE NEOPLASM. 2. Increased glucose concentration observed in the left mid anterior lung-left upper lobe fulfills quantitative criteria for viable neoplasm. 3. The carinal level mediastinal hypermetabolic focus fulfills quantitative criteria for viable metastatic involvement. (Yoly et al, Journal of Clinical Oncology 16:2142, 1998). 4. Enhanced tracer uptake visualized in the right lower anteromedial lung-right middle lobe fulfills quantitative criteria for malignant transformation. 5. The right sacral alar and right posterolateral sixth rib hypermetabolic foci fulfill quantitative criteria for viable osseous neoplasm. (tiki Stapleton al, Clinical Nuclear Medicine, 29:161, 2004). Electronic Signature Guille Bustos D.O. Electronically Signed: Guille Bustos DO at 18:47 EDT Tel , Service support ,
== END ==
PROVIDERS: PCP Family Medicine; Referring Provider Internal Medicine Critical Care Medicine; Visit Provider Internal Medicine Critical Care Medicine
DX: C34.12 Malignant neoplasm of upper lobe, left bronchus or lung (principal)
CPT/HCPCS: 78815; A9552

== ENCOUNTER → 2019-11-09 09:58 | Outpatient (CLI) | payer MEDICARE, MEDICAID, SELFPAY ==
[2019-10-27 08:25] VITALS: BMI 14.7
--- NOTE | 2019-11-09 10:00 | NM_ITS ---
CLINICAL: 69-year-old female with reported history of primary breast and lung carcinoma. WHOLE BODY 99m Tc MDP RADIONUCLIDE BONE SCINTIGRAPHY COMPARISON: FDG PET/CT study report dated 09/27/2019 FINDINGS: Following the intravenous administration of 27.0 mCi of 99m Tc MDP, whole body bone images reveal: 1. Increased radiopharmaceutical concentration is identified in the midline sacrum, left anterolateral third, left anterior seventh, right posterior lateral sixth, left posterior ninth-10th and third ribs, superior border of the left scapula. 2. Enhanced tracer distribution is defined in the posterior compartment of the left ankle. 3. The remaining skeletal structures are scintigraphically unremarkable with normal-appearing renal images and urinary bladder activity identified. NM/Bone Scan Whole Body IMPRESSION: 1. 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 2. 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 Electronically Signed: Guille Bustos DO at 22:54 EDT Tel , Service support ,
== END ==
PROVIDERS: PCP Family Medicine; Referring Provider Internal Medicine Medical Oncology; Visit Provider Internal Medicine Medical Oncology
DX: C34.12 Malignant neoplasm of upper lobe, left bronchus or lung (principal); M25.569 Pain in unspecified knee; Z85.3 Personal history of malignant neoplasm of breast
CPT/HCPCS: 78306